=== PATIENT | male | born 1960 | race Caucasian/White ===

== ENCOUNTER 2025-07-08 08:14 | Day surgery (SDC) | payer MEDICAID, OTHER ==
[2025-07-08 09:10] LABS: PLATELET COUNT,PLT 292.0 K/uL (130-375); RED BLOOD CELL COUNT 5.13 M/uL (4.14-5.76); WHITE BLOOD CELL COUNT,WBC 7.7 K/uL (3.2-11.0)
[2025-07-08 09:25] LABS: BLOOD UREA NITROGEN,BUN 16.0 mg/dL (7-18); CARBON DIOXIDE,CO2 23.0 mmol/L (21-32); CHLORIDE,CL 107.0 mmol/L (100-108); CREATININE 0.8 mg/dL (0.8-1.3); EST CRCL DRUG DOSING (CG) 105.42 mL/min; ESTIMATED GFR 99.0 mL/min (>60); GLUCOSE RANDOM 142.0 mg/dL (74-106); POTASSIUM,K 4.0 mmol/L (3.6-5.2); SODIUM,NA 141.0 mmol/L (140-148)
[2025-07-08] MEDS: Lactated Ringers 1,000 ML IV SCH (09:33)
[2025-07-08] MEDS ORDERED: Ondansetron 4 MG/2 ML SDV ONE (10:00)
[2025-07-08] MEDS ORDERED: fentaNYL 250 MCG/5 ML SDV ONE (10:00)
[2025-07-08] MEDS ORDERED: Dexamethasone 4 MG/ML SDV ONE (10:00)
[2025-07-08] MEDS: Nozin Nasal Sanitizer NASBOTH ONE (10:00)
[2025-07-08] MEDS ORDERED: Propofol 200 MG/20 ML SDV ONE (10:00)
[2025-07-08] MEDS ORDERED: Succinylcholine 200 MG/10 ML MDV ONE (10:30)
== END 2025-07-08 14:45 | disposition home or self-care (01) ==
LOC: JP.SDS 08:14
PROVIDERS: ATTEND Specialist
DX: M75.111 Incomplete rotator cuff tear or rupture of right shoulder, not specified as traumatic (principal); M19.011 Primary osteoarthritis, right shoulder; M75.41 Impingement syndrome of right shoulder; S46.111A Strain of muscle, fascia and tendon of long head of biceps, right arm, initial encounter; I10 Essential (primary) hypertension; K21.9 Gastro-esophageal reflux disease without esophagitis; Z91.09 Other allergy status, other than to drugs and biological substances; X58.XXXA Exposure to other specified factors, initial encounter; Z79.899 Other long term (current) drug therapy
CPT/HCPCS: 01630; 29824; 29826; 36415; 80048; 85027; A9270; C1713; J0330; J0665; J0690; J1100; J2405; J2704; J3010; J7120; J3490